=== PATIENT | male | born 1955 | race Caucasian/White ===

== ENCOUNTER → 2018-06-11 12:30 | Outpatient (CLI) | payer OTHER, SELFPAY ==
--- NOTE | 2018-06-11 12:39 | RAD_ITS ---
STUDY: X-RAY - LEFT KNEE REASON FOR EXAM: Male, 62 years old. Pain, decreased range of motion TECHNIQUE: 4 view(s) of the knee. COMPARISON: None. FINDINGS: Normal visualized distal femur. Normal visualized proximal tibia and fibula. Normal proximal tibiofibular articulation. There is moderate degenerative arthrosis of the medial femorotibial compartment with moderate joint space narrowing. Normal lateral femorotibial compartment. There is moderate degenerative arthrosis of the patellofemoral articulation. The soft tissue structures are unremarkable. RAD/Knee 4 or More Views IMPRESSION: Degenerative arthrosis. Electronically Signed: Shawn Caraballo MD at 13:32 EDT , Service support ,
== END ==
PROVIDERS: Referring Provider Physician Assistant; Visit Provider Physician Assistant
DX: M17.12 Unilateral primary osteoarthritis, left knee (principal)
CPT/HCPCS: 73564

== ENCOUNTER → 2018-12-23 11:12 | Outpatient (CLI) | payer OTHER, SELFPAY ==
[2018-12-23 10:37] VITALS: BMI 34.8
--- NOTE | 2018-12-23 11:13 | RAD_ITS ---
STUDY: X-RAY - PELVIS AND BILATERAL HIPS REASON FOR EXAM: Male, 63 years old. Left hip pain following a fall. TECHNIQUE: AP view of the pelvis.? 2 views of the right hip, and 2 views of the left hip were obtained. COMPARISON: None. FINDINGS: There is a non-specific bowel gas pattern. Normal visualized soft tissue structures. Normal bilateral iliac wings, sacroiliac joints and visualized sacrum. Normal bilateral superior and inferior pubic rami. Normal pubic symphysis. Normal bilateral ischial tuberosities. Normal visualized right femoral head. Normal right acetabulum. Normal right hip joint. Normal visualized left femoral head. Normal left acetabulum. Normal left hip joint. RAD/Hips B/L min 2 views w/ Pelvis IMPRESSION: Normal x-ray examination of the pelvis and bilateral hips. Electronically Signed: Moose Plascencia, at 11:32 EDT , Service support ,
== END ==
PROVIDERS: Referring Provider Physician Assistant Surgical; Visit Provider Physician Assistant Surgical
DX: S70.02XA Contusion of left hip, initial encounter (principal); S70.12XA Contusion of left thigh, initial encounter
CPT/HCPCS: 73521

== ENCOUNTER 2019-01-24 08:00 | Outpatient (RCR) | payer OTHER, SELFPAY ==
[2018-12-23 10:37] VITALS: BMI 34.8
--- NOTE | 2019-01-03 08:28 | HP.PTEVAL ---
Patient's Visit Information ESTHER DONOVAN is a 63 year old M referred to Physical Therapy by [facility] with a diagnosis of LEFT HIP CONTUSION,LEFT HIP STRAIN. Date of Evaluation: 01/03/19 Physical Therapist: Sadi Dietrich PT, Cert MDT, OCS - Visit Plan Frequency: 3x /Week Duration: 4 Weeks Plan: INTERVENTIONS HIP ROM/STRENGTHENING ,CORE STRENGTHENING,FLEXABLITY MODLITIES NEEDED - Subjective Findings: This 63 y/o male presents to physical therapy with left hip contusion. Patient injuried left hip at work falling on 12/13/18 on lateral hip,mechanical fall. Patient went to ER next day due to pain . Patient had x-rays at hospital. Then [facility] did [facility] again which was -.Patient had difficulty thus needed walkeR,progressed to cane.Patient pain located Left buttuck region. patient described as ache. Denies parathesia/tingling. Patient has difficulty with ADL's ,housework and unable to RTW. Patient has difficuly with steps. Patient condition affects QOL and return to work .Max lifting at work 100# and stand on feet all day. SOCAIL: . VOCATION: [employer] - Pain Left Buttocks Pain Intensity (Out of 10): 4 Pain Intensity Range: 10 - Objective POSTURE: mild foward posture. GAIT: ambulates with antalgic gait with decrease stance time with cane slow cance with 2 point gait. PALAPTION: tender SI. NEURO: intact. AROM: left hip flexion 15 degrees ,IR 20 dgrees pian ,. MMT: quads/hams 4/5 ,hip flexion 4-/5,abduction 3+/5 ,ankle 4/5. FLAXABLITY: hams min loss,piriformis min/mod loss. LUMBAR ROM: mod loss flexion ,extension,side bending - Goals Goal 1:: Patient to be Independant with HEP. Goal Time Frame: 4-6 Weeks Goal 2:: Patient to ambulate with normal jeremías with cane Goal Time Frame: 4-6 Weeks Goal 3:: Patient to decrease hip pain by 70% or greater to improve function and RTW. Goal Time Frame: 4-6 Weeks Goal 4:: Patient to increase strength of left hip to 4/5 to improve function. Goal Time Frame: 4-6 Weeks Goal 5:: Patient to improve LFES score by 10 points or greater to RTW. Goal Time Frame: 4-6 Weeks Goal 6:: Patient to RTW with min to no limitations. Goal Time Frame: 4-6 Weeks - Rehabilitation Potential Physical Therapy Diagnosis: This patient had mechanical fall at work landed on left hip with current impaitsment with weaknss,pain ,requires use of cane ,difficulty with ADL'S and unbale to RTW. Rehabilitation Potential: Good - Anticipated Interventions Patient/Client Instruction: Educate patient on: Condition, Plan of Care For the Purpose of:: To decrease pain, To increase ROM, To improve ability to perform ADL's, To increase tolerance to activity/condition/position, To improve ability of physical actions for home/community/work/leisure, To improve gait and locomotor functions, To improve health of tissue, To decrease soft tissue restriction, To increase flexibility/ROM, To reduce risk of recurrence, To improve ability to perform tasks related to life management Therapeutic Exercise to Include: Strength training, Endurance training, Balance training, Flexibilty training, Active ROM, Dynamic Lumbar Stabilization Comment: HIP/KNEE For the Purpose of:: To decrease pain, To increase ROM, To improve muscle performance and motor function, To improve ability to perform ADL's, To increase tolerance to activity/condition/position, To improve ability of physical actions for home/community/work/leisure, To improve health of tissue, To decrease soft tissue restriction, To increase flexibility/ROM, To improve endurance, To improve balance, To improve ability to perform tasks related to life management Other: RTW TENS: Yes IF ES: Yes Cryotherapy (ice pack, ice massage): Yes Thermo therapy (hot pack): Yes Ultrasound (thermal/non thermal): Yes For the Purpose of:: To decrease pain, To decrease swelling/inflammation, To improve health of tissue, To decrease soft tissue restriction Thank you for the opportunity to evaluate your patient. For Medicare and Medicare HMO plans, please review the plan of care and approve it. It will need to be FAXED BACK to us at [phone] for Medicare purposes. For Medicare only, by signing this I certify the plan of care. Please let me know if there are questions or concerns regarding this plan of care. Physician Signature: Date:
--- NOTE | 2019-02-03 09:50 | HP.PT.NRP ---
HP - Discharge Summary (1) - Patient Information ESTHER DONOVAN was seen in my office for initial evaluation on 01/03/19. The following Plan of Care was established for this patient: Initial Frequency: 3x /Week Initial Duration: 4 Weeks - Anticipated Interventions Patient/Client Instruction: Educate patient on: Condition, Plan of Care For the Purpose of:: To decrease pain, To increase ROM, To improve ability to perform ADL's, To increase tolerance to activity/condition/position, To improve ability of physical actions for home/community/work/leisure, To improve gait and locomotor functions, To improve health of tissue, To decrease soft tissue restriction, To increase flexibility/ROM, To reduce risk of recurrence, To improve ability to perform tasks related to life management Therapeutic Exercise to Include: Strength training, Endurance training, Balance training, Flexibilty training, Active ROM, Dynamic Lumbar Stabilization For the Purpose of:: To decrease pain, To increase ROM, To improve muscle performance and motor function, To improve ability to perform ADL's, To increase tolerance to activity/condition/position, To improve ability of physical actions for home/community/work/leisure, To improve health of tissue, To decrease soft tissue restriction, To increase flexibility/ROM, To improve endurance, To improve balance, To improve ability to perform tasks related to life management Other: RTW TENS: Yes IF ES: Yes Cryotherapy (ice pack, ice massage): Yes Thermo therapy (hot pack): Yes Ultrasound (thermal/non thermal): Yes For the Purpose of:: To decrease pain, To decrease swelling/inflammation, To improve health of tissue, To decrease soft tissue restriction This patient was last seen in our office 01/24/19. Pertinent comments regarding their Physical therapy will appear below: Patient seen for PT for left hip contusion for strengthening,ROM.flexablity. Patient did well met goals. Patient d/c due to RTW per MD. At this point I will be discontinuing this patient from physical therapy. I would be happy to see this patient again in the future if found appropriate by the physician. Thank you! Sadi Dietrich, PT, Cert MDT, OCS
== END 2019-01-24 19:00 | disposition home or self-care (01) ==
LOC: PT 08:00
PROVIDERS: Referring Provider Physician Assistant; Visit Provider Physician Assistant
DX: S70.02XD Contusion of left hip, subsequent encounter (principal); S76.012D Strain of muscle, fascia and tendon of left hip, subsequent encounter
CPT/HCPCS: 97014; 97110; 97162; G0283